=== PATIENT | male | born 1970 | race Caucasian/White ===

== ENCOUNTER → 2021-11-18 | Outpatient (CLI) | payer OTHER, BC ==
[~2021-11-18] MED LIST: CIPROFLOXACIN500 M4 PO; DAYPRO600 M1 PO; LISINOPRIL40 MG PO; METRONIDAZOLE500 M1 PO; OMEPRAZOLE20 MG PO; ROBAXIN750 MG PO
[2021-11-18 07:46] LABS: HEMATOCRIT 50.9 % (42.0-52.0); MEAN CELL VOLUME 86.9 fl (80.0-94.0); MEAN CORPUSCULAR HGB CONC 33.4 g/dl (33.0-37.0); MEAN PLATELET VOLUME 11.5 fl (9.6-12.3); RED BLOOD COUNT 5.86 10*6/uL (4.50-5.90); RED CELL DISTRI WIDTH 13.4 % (0-14.5); WHITE BLOOD COUNT 10.8 10*3/uL (4.8-10.8)
[2021-11-18 08:07] LABS: ALKALINE PHOSPHATASE 67 U/L (45-117); BUN 17 mg/dl (7-24); CHLORIDE 109 mmol/L (98-107); CHOLESTEROL 175 mg/dL (<200); CREATININE 1.34 mg/dL (0.70-1.30); LDL CHOLESTEROL 108 mg/dL (9-159); POTASSIUM 4.9 mmol/L (3.5-5.1); SGOT/AST 17 IU/L (3-35); SGPT/ALT 28 U/L (12-78); SODIUM 142 mmol/L (136-145); TOTAL PROTEIN 7.6 gm/dL (6.4-8.2); TRIGLYCERIDES 141 mg/dl (<150)
== END | disposition home or self-care (01) ==
LOC: LAB 07:32
PROVIDERS: ATTEND Family Medicine
DX: Z00.00 Encounter for general adult medical examination without abnormal findings (principal); Z12.5 Encounter for screening for malignant neoplasm of prostate

== ENCOUNTER → 2022-01-18 | Outpatient (CLI) | payer OTHER, BC | END | disposition home or self-care (01) | LOC: LAB 11:46 | PROVIDERS: ATTEND Surgery | DX: R10.9 Unspecified abdominal pain (principal) ==

== ENCOUNTER → 2022-01-22 | Outpatient (CLI) | payer OTHER, BC | END | disposition home or self-care (01) | LOC: CT 00:25 | PROVIDERS: ATTEND Surgery | DX: K46.9 Unspecified abdominal hernia without obstruction or gangrene (principal) ==

== ENCOUNTER 2022-02-15 00:25 | Observation (INO) | payer OTHER, BC ==
[2022-02-12 14:40] VITALS: BP 179/117
[2022-02-15] VITALS (11 sets, daily range): BP systolic 136–196; BP diastolic 66–104
[~2022-02-15] VITALS: Ht 178 cm; Wt 125.0 kg
[~2022-02-15 00:25] MED LIST changes: +AMLODIPINE BESY10 MG PO; +LISINOPRIL20 MG PO; +LOSARTAN POTAS100 M1 PO; +Lopressor25 MG PO; +METFORMIN XR500 MG PO; +OMEPRAZOLE40 MG PO
[2022-02-16] VITALS: BP 161/93
[2022-02-16 08:00] VITALS: BP 148/94
[2022-02-16] MEDS ORDERED: Percocet 325 MG1 TAB PO (08:50)
[2022-02-16] MEDS ORDERED: COLACE100 MG PO (08:50)
[2022-02-16] MEDS ORDERED: ONDANSETRON HYDR4 M1 PO (08:50)
[2022-02-16 12:00] VITALS: BP 138/76
[2022-02-16 16:00] VITALS: BP 130/77
[2022-02-16 20:00] VITALS: BP 138/63
[2022-02-17] VITALS: BP 135/65
[2022-02-17 04:03] VITALS: BP 130/66
[2022-02-17 08:00] VITALS: BP 138/73
[2022-02-17 12:00] VITALS: BP 146/103
== END 2022-02-17 15:58 | disposition home or self-care (01) ==
LOC: SDC 00:25 → 4E 11:56 → SDC 12:30 → 4E 16:19
PROVIDERS: ADMIT Student in an Organized Health Care Education/Training Program; ATTEND Internal Medicine
DX: K43.0 Incisional hernia with obstruction, without gangrene (principal); E66.01 Morbid (severe) obesity due to excess calories; K21.9 Gastro-esophageal reflux disease without esophagitis; I10 Essential (primary) hypertension; K59.00 Constipation, unspecified; Z79.899 Other long term (current) drug therapy

== ENCOUNTER → 2022-11-05 | Outpatient (CLI) | payer OTHER, BC ==
[~2022-11-05] MED LIST changes: +COLACE100 MG PO; +ONDANSETRON HYDR4 M1 PO; +Percocet 325 MG1 TAB PO
[2022-11-05 08:00] LABS: HEMATOCRIT 52.5 % (42.0-52.0); MEAN CELL VOLUME 86.5 fl (80.0-94.0); MEAN CORPUSCULAR HGB CONC 33.5 g/dl (33.0-37.0); MEAN PLATELET VOLUME 11.2 fl (9.6-12.3); RED BLOOD COUNT 6.07 10*6/uL (4.50-5.90); RED CELL DISTRI WIDTH 13.6 % (0-14.5); WHITE BLOOD COUNT 11.2 10*3/uL (4.8-10.8)
[2022-11-05 08:18] LABS: ALKALINE PHOSPHATASE 71 U/L (46-116); BUN 15 mg/dl (9-23); CHLORIDE 106 mmol/L (98-107); CHOLESTEROL 150 mg/dL (<200); LDL CHOLESTEROL 90 mg/dL (9-159); POTASSIUM 4.3 mmol/L (3.4-5.1); SGPT/ALT 20 U/L (10-49); TOTAL PROTEIN 7.6 gm/dL (6.0-8.0); TRIGLYCERIDES 119 mg/dl (<150)
== END | disposition home or self-care (01) ==
LOC: LAB 07:43
PROVIDERS: ATTEND Family Medicine
DX: I10 Essential (primary) hypertension (principal)

== ENCOUNTER → 2023-11-01 | Outpatient (CLI) | payer OTHER, BC | LOC: LAB 07:38 | PROVIDERS: ATTEND Family Medicine | DX: Z12.5 Encounter for screening for malignant neoplasm of prostate (principal); E74.9 Disorder of carbohydrate metabolism, unspecified ==

== ENCOUNTER → 2023-11-08 | Outpatient (CLI) | payer OTHER, BC | END | disposition home or self-care (01) | LOC: RAD 12:28 | PROVIDERS: ATTEND Family Medicine | DX: R91.8 Other nonspecific abnormal finding of lung field (principal); M25.78 Osteophyte, vertebrae; M47.814 Spondylosis without myelopathy or radiculopathy, thoracic region ==

== ENCOUNTER → 2024-05-09 | Outpatient (CLI) | payer OTHER, BC ==
[2024-05-09 07:52] LABS: HEMATOCRIT 50.6 % (42.0-52.0); MEAN CELL VOLUME 86.6 fl (80.0-94.0); MEAN CORPUSCULAR HGB 29.6 pg (27.0-31.0); MEAN CORPUSCULAR HGB CONC 34.2 g/dl (33.0-37.0); MEAN PLATELET VOLUME 11.4 fl (9.6-12.3); RED BLOOD COUNT 5.84 10*6/uL (4.50-5.90); RED CELL DISTRI WIDTH 12.4 % (0-14.5); WHITE BLOOD COUNT 9.3 10*3/uL (4.8-10.8)
[2024-05-09 08:37] LABS: ALKALINE PHOSPHATASE 64 U/L (46-116); BUN 14 mg/dl (9-23); CHLORIDE 106 mmol/L (98-107); CHOLESTEROL 151 mg/dL (<200); LDL CHOLESTEROL 91 mg/dL (9-159); POTASSIUM 4.5 mmol/L (3.4-5.1); SGPT/ALT 16 U/L (5-49); TOTAL PROTEIN 7.3 gm/dL (6.0-8.0); TRIGLYCERIDES 80 mg/dl (<150)
== END | disposition home or self-care (01) ==
LOC: LAB 07:36
PROVIDERS: ATTEND Family Medicine
DX: K21.9 Gastro-esophageal reflux disease without esophagitis (principal); E55.9 Vitamin D deficiency, unspecified; E74.9 Disorder of carbohydrate metabolism, unspecified; Z00.00 Encounter for general adult medical examination without abnormal findings